=== PATIENT | female | born 1975 | race Two or more races ===

== ENCOUNTER 2016-10-09 07:01 | Emergency (ER) | payer MEDICAID, OTHER ==
[2016-10-09] MEDS ORDERED: ONDANSETRON 4 MG/2ML 2 ML VIAL ONE (07:43)
[2016-10-09] MEDS ORDERED: SODIUM CHLORIDE 0.9% 2,000 ML ONE (07:43)
[2016-10-09] MEDS ORDERED: PANTOPRAZOLE SODIUM 40 MG VIAL IV ONE (07:43)
[2016-10-09 07:48] LABS: ABSOLUTE NEUTROPHIL COUNT 11.5 K/mm3 (1.8-7.7); BASO % 0.2 % (0.2-1.0); EOS % 0.1 % (0.9-2.9); HEMATOCRIT 40.9 % (37.0-47.0); HEMOGLOBIN 12.8 gm/l (12.0-16.0); IMM NEUT% 0.3 % (0-1); LYMPH # 0.6 (1.0-4.8); LYMPH % 4.5 % (15-45); MEAN CELL VOLUME 78.5 fl (81.0-99.0); MEAN CORPUSCULAR HEMOGLOBIN 24.6 pg (27.0-31.0); MEAN CORPUSCULAR HGB CONC 31.3 g/dl (33.0-37.0); MEAN PLATELET VOLUME 9.4 fl (7.4-10.4); MONO # 0.5 (0.0-0.8); NEUT % 90.9 % (43-75); PLATELET COUNT 264 K/mm3 (130-400); RED CELL DISTRIBUTION WIDTH 14.3 % (11.5-14.5)
[2016-10-09 08:09] LABS: ALB/GLOB RATIO 1.3 (>1.0)
[2016-10-09] MEDS ORDERED: KETOROLAC TROMETHAMINE 30 MG/ML 1 ML VIAL ONE (08:31)
--- NOTE | 2016-10-09 09:06 | US ---
ABDOMINAL-LIMITED COMPARISON: None HISTORY: Abdominal pain with nausea, vomiting, and diarrhea, since last night. FINDINGS: Gall bladder: Normal length 4.9 cm. Normal wall thickness 1.4 min. No stones or sludge. Common hepatic duct: 1.4 mm. Common bile duct: 2.8 mm. IMPRESSION: 1. Normal study. No evidence of cholecystitis. No obstruction of the bile duct. Report was sent to the emergency department electronic medical record system 10/09/2016 at 09:07
[2016-10-09 09:14] LABS: BAND 3 % (0-10); BASOPHIL 0 % (0-1); EOSINOPHIL 0 % (1-3); LYMPHOCYTE 7 % (15-45); MONOCYTE 5 % (4-12); NEUTROPHILS 85 % (43-75); PLATELET ESTIMATE NORMAL (NORMAL); TOTAL CELLS COUNTED 100
== END 2016-10-09 09:49 | disposition home or self-care (01) ==
LOC: ED 07:01
DX: R11.10 Vomiting, unspecified (principal); R19.7 Diarrhea, unspecified; R10.13 Epigastric pain
CPT/HCPCS: 83690; 82150; 85025; 80053; 76705; 96375 ×2; 99284 ×2; 96374; 96361 ×2; C9113; J1885; J2405; J7030